=== PATIENT | male | born 1965 | race Caucasian/White ===

== ENCOUNTER → 2019-01-18 17:00 | Outpatient (CLI) | payer OTHER, SELFPAY | PROVIDERS: Family Provider Family Medicine; PCP Family Medicine; Referring Provider Physician Assistant; Visit Provider Physician Assistant | DX: L02.212 Cutaneous abscess of back [any part, except buttock and flank] (principal) | CPT/HCPCS: 87070; 87205 ==

== ENCOUNTER 2021-08-19 18:37 | Inpatient (IN) | payer OTHER, SELFPAY ==
[2021-08-19] VITALS (8 sets, daily range): BP systolic 143–174; BP diastolic 107–120; PULSE 105–121; RESP 16–29; TEMP 36.6–37.3; O2SAT 95–97; BMI 36.9; BMI 41.5
--- NOTE | 2021-08-19 18:47 | RAD_ITS ---
STUDY: X-RAY CHEST REASON FOR EXAM: Male, 55 years old. dyspnea TECHNIQUE: Single AP portable view of the chest. COMPARISON: None. FINDINGS: Mild opacities overlie the mid to lower lobes with prominent interstitial markings. There is no demonstrated pleural abnormality. There is moderate cardiac enlargement. Normal mediastinum and ana. Normal visualized pulmonary arteries. Normal visualized aortic arch and descending thoracic aorta. Normal visualized thoracic spine. Normal visualized ribs, clavicles, and shoulders. There is no demonstrated abnormality of the visualized soft tissue structures of the upper abdomen. RAD/Chest 1 View (Portable) IMPRESSION: Mild prominent mid to lower lung symmetric airspace disease and interstitial markings concerning for early alveolar edema and interstitial edema in the cardiogenic setting, clinically correlate. Electronically Signed: Cornelio Chiang DO at 22:01 EDT ,
--- NOTE | 2021-08-19 18:47 | EKG12_ITS ---
Test Reason : SOB Blood Pressure : / mmHG Vent. Rate : 117 BPM Atrial Rate : 117 BPM P-R Int : 158 ms QRS Dur : 084 ms QT Int : 330 ms P-R-T Axes : 051 071 057 degrees QTc Int : 460 ms Sinus tachycardia Otherwise normal ECG Confirmed by HECTOR VICTORIA, ELOISE ([id number]), graphic editor GAVIN ROY ([id number]) on 08/20/2021 11:24:35 AM Referred By: ALIREZA Confirmed By:ELOISE YOUNG MD
--- NOTE | 2021-08-19 18:48 | ED.VIS.DYS ---
HPI History of Present Illness Chief Complaint: Shortness of Breath Detail of Chief Complaint: Shortness of breath that started for 5 days ago Informant: patient Narrative Narrative: Patient presents to the emergency department with increasing shortness of breath over the last for 5 days. Patient also has noticed increased swelling as in his legs. He complains of exertional dyspnea. He denies any chest pain. Patient believes he may have had COVID a month ago because he had COVID-like symptoms but was never tested. He denies recent travel or surgery. He states that he normally does not go to the doctor. He states he does not otherwise have any medical history. He quit drinking alcohol 10 to 12 years ago but was a heavy drinker prior to that. PFSH PFSH Medical History no medical history Allergy/AdvReac Type Severity Reaction Status Date / Time No Known Allergies Allergy Verified 08/19/21 18:40 Surgical History no surgical history Social History Smoking Status: Current some day smoker tobacco type: cigarettes and smokeless tobacco ROS ROS ED Constitutional Constitutional ED: Reports systems reviewed and no addt'l complaints, except as documented; Denies body ache(s), change in weight or chills Eyes Eyes: Denies acute decrease in peripheral vision, change in vision, double vision or loss of vision ENT ENT ED: Reports none; Denies ear pain, lip swelling, loss taste/smell, neck pain, otalgia or sore throat Cardiovascular Cardiovascular: Reports none; Denies abdominal pain, chest pain with activity, leg edema, lightheadedness, palpitations, rapid heart rate or syncope Respiratory/Chest Respiratory/Chest: Reports none and dyspnea; Denies change in mental status, dry cough, hemoptysis, shortness of breath at rest or shortness of breath with exertion Gastrointestinal Gastrointestinal: Reports none; Denies abdominal pain, change in stool character, diarrhea, hematemesis, hematochezia, melena, rectal bleeding or vomiting Genitourinary Genitourinary ED: Reports none; Denies abdominal discomfort, anuria, dysuria, genital pain or polyuria Musculoskeletal Musculoskeletal: Reports none and other Details: Bilateral leg swelling ; Denies arthralgias, back pain, difficulty walking, extremity pain, muscle weakness or myalgias Integumentary Reports none; Denies abscess or rash Neurologic Neurologic: Reports none; Denies abnormal gait, confusion, focal weakness, frequent falls, headache(s), loss of vision, numbness, paresthesias, radicular pain, vertigo or weakness Psychiatric Psychiatric: Reports systems reviewed and no addt'l complaints, except as documented and none; Denies behavioral changes, confusion, difficulty concentrating, hallucinations, suicidal ideation, tactile hallucinations or visual hallucinations Endocrine Endocrinology: Denies none, cold intolerance, excessive sweating, fatigue or heat intolerance Hematologic/Lymphatic Hematologic/Lymphatic: Reports none; Denies anemia, easy bleeding or easy bruising Allergic/Immunologic Allergic/Immunologic ED: Denies as per HPI, none, lip swelling, mouth swelling, throat swelling, tongue swelling or hives EXAM Physical Exam Const Vital Signs: 08/19/21 18:38 08/19/21 19:03 08/19/21 19:44 Temperature 97.9 F Temperature Source Temporal Pulse Rate 121 H 112 H Respiratory Rate 16 27 H Respiratory Effort Normal Non-Labored Respiratory Depth Normal Respiratory Pattern Normal Blood Pressure 174/120 H 154/111 H Blood Pressure Mean 138 125 Pulse Ox 95 96 Oxygen Delivery Method Room Air Room Air Room Air 08/19/21 20:20 08/19/21 20:42 Temperature Temperature Source Pulse Rate 110 H 111 H Respiratory Rate 29 H Respiratory Effort Respiratory Depth Respiratory Pattern Blood Pressure 156/110 H 153/120 H Blood Pressure Mean 125 Pulse Ox 96 Oxygen Delivery Method Room Air Positive well nourished and well developed General Appearance ED: well developed and NAD HEENT Reports TM's clear and moist mucous membranes normocephalic and atraumatic; Negative for trauma or tenderness Tympanic Membrane ED: Yes TM's clear Eyes PERRL and EOMs intact bilaterally General Eye ED: Negative for pale conjunctiva or scleral icterus Neck no lymphadenopathy, supple and no JVD General: Negative for tenderness Chest Wall inspection of chest normal and palpation of chest normal Chest: Negative for tenderness Resp normal respiratory effort and clear to auscultation bilaterally Resp Narrative: Mild tachypnea on arrival. Patient has few rales in both bases with somewhat diminished breath sounds bilaterally in the bases. No accessory muscle use or retractions noted. There is no significant wheezing. Effort and Inspection: Negative for respiratory distress or pain with movement Auscultation: rales; Negative for rhonchi, wheezes or diminished lung sounds Cardio regular rate, regular rhythm, S1 normal heart sound, S2 normal heart sound and no murmurs Peripheral Pulses: pulses 2+ throughout GI normal to inspection, nondistended, normoactive bowel sounds, soft to palpation, non-tender, non-distended and no masses Back/Spine no CVA tenderness and no thoracic nor lumbar tenderness Extremity normal to inspection Extremity Narrative: Patient has +2 edema both lower extremities General Extremety ED: Yes edema General Extremity: edema Neuro oriented x3, CN's II-XII intact bilaterally, no sensory deficits noted and gait normal Sensorium / Orientation: awake, alert, oriented to person, oriented to place and oriented to time Motor Exam: strength 5/5 throughout and strength abnormal Psych mental status grossly normal Skin no rashes or lesions noted and no wounds MDM MDM MDM Narrative Medical decision making narrative: IV line established on arrival. Patient placed on a quality assurance monitor body. Lab work up significant for an elevated D-dimer of 0.65. Troponin was normal. Lactate was normal. BNP was elevated at 637. 1 view chest x-ray obtained interpreted by myself as cardiomegaly with pulmonary congestion and small bilateral effusions. Official report from radiology pending. A CTA of the chest was obtained to rule out PE and this was read as negative for PE. Exam was consistent with CHF with bilateral effusions and pulmonary edema as well as cardiomegaly. Patient received Lasix 40 mg IV and had an inch of Nitropaste placed to the anterior chest wall. Case discussed with hospitalist will evaluate patient for admission for diagnosis of new onset CHF as well as hypertension and exertional dyspnea. Lab Data Attestation: I reviewed the patient's lab results. Labs: Laboratory Results - last 24 hr 08/19/21 08/19/21 08/19/21 18:58 18:58 18:58 WBC 8.6 RBC 4.62 Hgb 11.7 L Hct 38.6 L MCV 83.5 MCH 25.3 L MCHC 30.3 L RDW Std Deviation 46.4 H RDW Coeff of Henny 15.4 H Plt Count 273 MPV 9.1 Immature Gran % (Auto) 0.300 Neut % (Auto) 70.9 H Lymph % (Auto) 13.8 L [place] % (Auto) 10.2 H Eos % (Auto) 3.9 Baso % (Auto) 0.9 Absolute Neuts (auto) 6.1 Absolute Lymphs (auto) 1.19 Nucleated RBC % 0 D-Dimer Quant (PE/DVT) 0.65 H* Sodium 141 Potassium 3.9 Chloride 108 H Carbon Dioxide 28.0 Anion Gap 5 BUN 16 Creatinine 0.88 Estim Creat Clear Calc 94.85 Est GFR (MDRD) Af Amer 116 Est GFR (MDRD) Non-Af 96 BUN/Creatinine Ratio 18.3 Glucose 102 Lactic Acid Calcium 8.5 Total Bilirubin 1.00 AST 27 ALT 65 H Alkaline Phosphatase 96 Troponin I High Sens 36 B-Natriuretic Peptide Total Protein 6.9 Albumin 3.2 Globulin 3.7 Albumin/Globulin Ratio 0.9 08/19/21 08/19/21 18:58 18:58 WBC RBC Hgb Hct MCV MCH MCHC RDW Std Deviation RDW Coeff of Henny Plt Count MPV Immature Gran % (Auto) Neut % (Auto) Lymph % (Auto) [place] % (Auto) Eos % (Auto) Baso % (Auto) Absolute Neuts (auto) Absolute Lymphs (auto) Nucleated RBC % D-Dimer Quant (PE/DVT) Sodium Potassium Chloride Carbon Dioxide Anion Gap BUN Creatinine Estim Creat Clear Calc Est GFR (MDRD) Af Amer Est GFR (MDRD) Non-Af BUN/Creatinine Ratio Glucose Lactic Acid 1.7 Calcium Total Bilirubin AST ALT Alkaline Phosphatase Troponin I High Sens B-Natriuretic Peptide 636.8 H Total Protein Albumin Globulin Albumin/Globulin Ratio Radiography Chest X-Ray - ED: 1 View Diagnostic Testing: Clinical Impression(s) from Imaging Studies Chest CTA 08/19/21 19:47 IMPRESSION: 1. No evidence of PE or aortic aneurysm or dissection. 2. Findings highly consistent with CHF including cardiomegaly, pulmonary interstitial edema, and mild pleural effusions. 3. Extensive old granulomatous disease, too numerous to count scattered punctate calcified lung granulomas and tiny calcifications in the hilar regions. 4. Coronary artery calcifications. 5. Some mild groundglass opacities lungs, most likely due to some slight superimposed alveolar edema, cannot exclude some mild pneumonitis. Electronically Signed: Maria E Link MD at 21:19 EDT , 1 view chest x-ray obtained interpreted by myself as cardiomegaly with pulmonary congestion and small bilateral effusions. Official report from radiology pending. EKG Initial EKG: Attestation: I personally reviewed and interpreted this EKG as follows: Comments: Sinus tachycardia with a ventricular rate of 117 bpm with no acute ST segment changes Discharge Plan Triage Chief Complaint: Shortness of Breath ED Provider: Scarlett Kennedy Dx/Rx/DC Orders Clinical Impression: New onset of congestive heart failure, Exertional dyspnea, Hypertension Primary Care Provider: Care Physician,No Primary Referrals: Care Physician,No Primary [Primary Care Provider] - Disposition Disposition: Acute Care Hospital [facility]
[2021-08-19 19:17] LABS: Absolute Lymphocyte Count 1.19 X10^3/uL (0.83-4.51); Absolute Neutrophil Count 6.1 X10^3/uL (2.0-7.7); Basophil# 0.08 X10^3/uL; Basophil% 0.9 % (0-1); Eosinophil# 0.34 X10^3/uL; Eosinophils% 3.9 % (0-5); Hematocrit 38.6 % (40-54); Hemoglobin 11.7 g/dL (13.0-16.5); Lymphocyte # 1.19 X10^3/ul (0.83-4.51); Lymphocyte % 13.8 % (19-41); Mean Corp Hgb Conc 30.3 g/dL (32-36); Mean Corpuscular Hgb 25.3 pg (27.0-32.0); Mean Corpuscular Volume 83.5 fL (80-94); Mean Platelet Vol. 9.1 fl (6.2-12.0); Monocyte# 0.88 X10^3/uL; Monocyte% 10.2 % (0-10); NRBC Flagged by Analyzer 0 % (0-5); Neutrophil # 6.12 X10^3/uL (2.7-7.7); Neutrophil % 70.9 % (47-70); Platelet Count 273 K/mm3 (150-450); RBC Distribution Width CV 15.4 % (11.6-14.6); RBC Distribution Width SD 46.4 fl (35.1-43.9); Red Blood Count 4.62 M/mm3 (4.6-6.2); White Blood Count 8.6 K/mm3 (4.4-11.0)
[2021-08-19 19:35] LABS: ALB/GLOB Ratio 0.9 RATIO (0.9-2.4); AST(SGOT) 27 U/L (15-37); Alanine Aminotransfer ALT/SGPT 65 U/L (16-61); Albumin, Serum 3.2 g/dL (3.2-5.0); Alkaline Phosphatase 96 U/L (45-117); Anion Gap 5 (5-15); BUN 16 mg/dL (7-18); BUN/Creat Ratio 18.3 RATIO (10-20); Calcium,Total 8.5 mg/dL (8.5-10.1); Chloride 108 mmol/L (98-107); Creatinine, Serum 0.88 mg/dL (0.70-1.30); EST Glomerular Filtration Rate 96 mL/min (>60); Est Glom Filt Rate - Afr Amer 116 mL/min (>60); Estimated Creatinine Clearance 94.85 ml/min; Globulin 3.7 g/dL (2.2-4.2); Glucose 102 mg/dL (74-106); Potassium 3.9 mmol/L (3.5-5.1); Protein, Total 6.9 g/dL (6.4-8.2); Sodium Level 141 mmol/L (136-145); Troponin-I HS 36 pg/mL (3.0-78.0)
[2021-08-19 19:37] LABS: BNP,B-Type NATRIURETIC PEPTIDE 636.8 pg/mL (0-100)
[2021-08-19 19:39] LABS: Lactic Acid 1.7 mmol/L (0.4-1.9)
[2021-08-19 19:47] LABS: D-Dimer Quantitative (DVT/PE) 0.65 FEU/ug/m (0.27-0.49)
--- NOTE | 2021-08-19 19:47 | CT_ITS ---
EXAM: CT ANGIOGRAPHY CHEST WITHOUT AND WITH INTRAVENOUS CONTRAST CLINICAL INDICATION: dyspnea, tachycardia, elevated d-dimer TECHNIQUE: Helically acquired angiography images were obtained of the chest without and with intravenous contrast. This CT exam was performed using one or more of the following dose reduction techniques: automated exposure control, adjustment of the mA and/or kV according to patient size, and/or use of iterative reconstruction technique. This report was created using So[employer] report generation technology. MIP reconstructed images were created and reviewed. CONTRAST: IV 100mL [id number]-370 RADIATION DOSE: CTDIvol = 34.04 mGy, DLP = 636.03 mGy-cm COMPARISON: None. FINDINGS: PULMONARY ARTERIES: Unremarkable. Normal in caliber. No evidence of pulmonary embolism. AORTA: Unremarkable. Normal in caliber. No evidence of dissection. GREAT VESSELS OF AORTIC ARCH: Unremarkable. Normal in caliber. No evidence of dissection. LUNGS AND PLEURAL SPACES: There are numerous scattered calcified granulomas in the lungs. Mild increased interstitial markings in the upper lobes and lung bases, typical of mild pulmonary interstitial edema. Mild airway thickening in the central lungs, presumably peribronchiolar edema. Mild patchy groundglass opacities in the dependent left lung and in the right upper lobe may be slight superimposed alveolar edema, less likely pneumonitis. Mild bilateral pleural effusions. No mass. HEART: Mild multichamber cardiomegaly, no intracardiac filling defect. Moderate coronary artery calcifications in left coronary artery and branches. No pericardial effusion. No signs of right heart strain, ratio of right ventricle to left ventricle measures less than 1. MEDIASTINUM: Mild fluid in the superior pericardial recesses. Mild mediastinal lipomatosis and small mediastinal lymph nodes of up to about 1 cm short axis. There are multiple tiny hilar calcifications, presumably due to old granulomatous disease. No central airway obstruction. Esophagus is unremarkable. No hiatal hernia. THYROID: Unremarkable. No thyroid lesions. BONES/JOINTS: Unremarkable. No suspicious lytic or blastic abnormality. GALLBLADDER AND BILE DUCTS: Contracted gallbladder is fully included. Unremarkable almost completely included pancreas, adrenals. CT/CTA Chest W/WO Contrast IMPRESSION: 1. No evidence of PE or aortic aneurysm or dissection. 2. Findings highly consistent with CHF including cardiomegaly, pulmonary interstitial edema, and mild pleural effusions. 3. Extensive old granulomatous disease, too numerous to count scattered punctate calcified lung granulomas and tiny calcifications in the hilar regions. 4. Coronary artery calcifications. 5. Some mild groundglass opacities lungs, most likely due to some slight superimposed alveolar edema, cannot exclude some mild pneumonitis. Electronically Signed: Maria E Link MD at 21:19 EDT ,
[2021-08-19] MEDS: Furosemide 40 MG/4 ML Vial IV (20:42)
[2021-08-19] MEDS: Nitroglycerin Oint 1 INCH PACKET TD (20:42)
--- NOTE | 2021-08-19 21:31 | PCM.HP.STD ---
[facility] - General General Date of Admission: 08/19/21 HPI Narrative MARY STARR, is a 55 M with a significant history of previous alcoholism now sober; tobacco abuse; and hypertension who does not follow-up with a doctor presenting with a 2-week history of progressively worsening shortness of breath. Initially his shortness of breath was with exertion but his shortness of breath progressed to even when he is at rest. Associated with symptom is paroxysmal nocturnal dyspnea; orthopnea; and fatigue. Further, he reports a weight gain of unspecified amount and in an unspecified timeframe. He reports swelling in his abdomen; swelling and in his feet; swelling in his upper extremities; swelling in his abdomen and swelling in his lower extremities. Further he reports intermittent productive cough of yellow sputum. Of note patient's reports COVID-like symptoms about a month ago that resolved. He reports chronic sleep apnea [facility] Medical History (Updated 08/19/21 @ 21:[address] Rj Flores MD) Hypertension Medical History no medical history Allergy/AdvReac Type Severity Reaction Status Date / Time No Known Allergies Allergy Verified 08/19/21 18:40 Family History (Updated 08/19/21 @ 21:[address] Rj Flores MD) Other Heart disease Surgical History (Updated 08/19/21 @ 22:[address] Rj Flores MD) History of incision and drainage Surgical History no surgical history Social History Smoking Status: Current some day smoker tobacco type: cigarettes and smokeless tobacco ROS ROS Narrative Constitutional: Denies fever, chills, fatigue. Reports weight gain. Eyes: Denies blurry vision, change in eye color, change in vision, discharge from eye(s), double vision, erythema, eye pain, loss of vision or other HEENT: Denies abnormal hearing, dysphagia, ear pain, epistaxis, headache(s), hearing loss, nasal congestion, nasal discharge, post nasal drip, sinus pressure, sore throat or other Cardiovascular: Denies chest pain or palpitations. Reports orthopnea and paroxysmal nocturnal dyspnea. Reports edema Respiratory/Chest: Reports intermittent productive cough with yellow sputum. Reports shortness of breath. Gastrointestinal: Denies abdominal pain, coffee ground emesis, constipation, diarrhea, dyspepsia, hematemesis, hematochezia, loose stools, melena, nausea, vomiting or other Genitourinary: Denies burning urination, difficulty urinating, dysuria, hematuria, nocturia, urinary frequency, urinary hesitancy, urinary incontinence, urinary urgency or other Musculoskeletal: Denies arthralgias, back pain, joint pain, joint stiffness, joint swelling, myalgias, neck pain or other Neurologic: Denies abnormal gait, abnormal speech, confusion, disequilibrium, dizziness, focal weakness, numbness, paresthesias, seizure-like activity, seizures, syncope, tingling, tremor(s) or other Psychiatric: Denies anxiety, depression, homicidal ideation, suicidal ideation or other Endocrinology: Denies change in body appearance, cold intolerance, excessive sweating, heat intolerance, polydipsia, polyuria or other Hematologic/Lymphatic: Denies anemia, easy bleeding, easy bruising, lymphadenopathy or other Integumentary: Denies rashes Allergic/Immunologic: Denies rhinitis, hives, eczema, or other Vital Signs Vital Signs Vital Signs: 08/19/21 18:38 08/19/21 19:03 08/19/21 19:44 Temperature 97.9 F Temperature Source Temporal Pulse Rate 121 H 112 H Respiratory Rate 16 27 H Respiratory Effort Normal Non-Labored Respiratory Depth Normal Respiratory Pattern Normal Blood Pressure 174/120 H 154/111 H Blood Pressure Mean 138 125 Pulse Ox 95 96 Oxygen Delivery Method Room Air Room Air Room Air 08/19/21 20:20 08/19/21 20:42 Temperature Temperature Source Pulse Rate 110 H 111 H Respiratory Rate 29 H Respiratory Effort Respiratory Depth Respiratory Pattern Blood Pressure 156/110 H 153/120 H Blood Pressure Mean 125 Pulse Ox 96 Oxygen Delivery Method Room Air Weight Weight: 113.398 kg Body Mass Index (BMI) 36.9 Physical Exam Narrative Physical exam: General: Well-nourished, well-developed. Head: Normocephalic, atraumatic, no tenderness Eyes: Vision is grossly intact. EOMI ENT, no trauma, moist mucous membranes, no rhinorrhea Neck: Nontender, full range of motion, no spinal tenderness, deformities, step-off CVS: Regular rate and rhythm. S1-S2 present. No murmur, gallop or rub. Respiratory : Conversational dyspnea. Bibasilar Rales., chest wall nontender, no wheezing Abdomen: Soft, nontender, nondistended, normal bowel sounds, no masses : Deferred Back: Nontender, no CVA tenderness, no midline spinal tenderness, deformities, step-offs Extremities: Nontender full range of motion, no trauma. Pitting edema bilateral legs. Skin: Normal color, no trauma, abrasions Neuro: Alert, oriented, cranial nerves II through XII grossly intact. Psychiatry: Normal mood. Normal affect. Not depressed. Not anxious. Results Lab / Micro Data Result Diagrams: 08/19/21 18:58 08/19/21 18:58 Labs: Laboratory Results - last 24 hr 08/19/21 18:58: WBC 8.6, RBC 4.62, Hgb 11.7 L, Hct 38.6 L, MCV 83.5, MCH 25.3 L, MCHC 30.3 L, RDW Std Deviation 46.4 H, RDW Coeff of Henny 15.4 H, Plt Count 273, MPV 9.1, Immature Gran % (Auto) 0.300, Neut % (Auto) 70.9 H, Lymph % (Auto) 13.8 L, [place] % (Auto) 10.2 H, Eos % (Auto) 3.9, Baso % (Auto) 0.9, Absolute Neuts (auto) 6.1, Absolute Lymphs (auto) 1.19, Nucleated RBC % 0 08/19/21 18:58: D-Dimer Quant (PE/DVT) 0.65 H* 08/19/21 18:58: Sodium 141, Potassium 3.9, Chloride 108 H, Carbon Dioxide 28.0, Anion Gap 5, BUN 16, Creatinine 0.88, Estim Creat Clear Calc 94.85, Est GFR (MDRD) Af Amer 116, Est GFR (MDRD) Non-Af 96, BUN/Creatinine Ratio 18.3, Glucose 102, Calcium 8.5, Total Bilirubin 1.00, AST 27, ALT 65 H, Alkaline Phosphatase 96, Troponin I High Sens 36, Total Protein 6.9, Albumin 3.2, Globulin 3.7, Albumin/Globulin Ratio 0.9 08/19/21 18:58: Lactic Acid 1.7 08/19/21 18:58: B-Natriuretic Peptide 636.8 H Micro: Microbiology 08/19/21 18:55 Nasal Secretion SARS-CoV-2 Antigen (Rapid) - Final Radiology Impression Chest CTA 08/19/21 19:47 IMPRESSION: 1. No evidence of PE or aortic aneurysm or dissection. 2. Findings highly consistent with CHF including cardiomegaly, pulmonary interstitial edema, and mild pleural effusions. 3. Extensive old granulomatous disease, too numerous to count scattered punctate calcified lung granulomas and tiny calcifications in the hilar regions. 4. Coronary artery calcifications. 5. Some mild groundglass opacities lungs, most likely due to some slight superimposed alveolar edema, cannot exclude some mild pneumonitis. Electronically Signed: Maria E Link MD at 21:19 EDT , Assessment & Plan Assessment/Plan (1) New onset of congestive heart failure: (2) Hypertension: QUALIFIERS: Hypertension type: unspecified Qualified Code(s): I10 - Essential (primary) hypertension PLAN: New onset congestive heart failure Unspecified whether preserved or reduced ejection fraction. Place on monitored bed on progressive care unit Weight on admission to the floor; and then daily Strict I&O's CXR independently visualized and interpreted showed enlarged cardiac silhouette with interstitial infiltrates. Chest CTA was visualized and independently interpreted and I agree with radiologist interpretation of CHF findings and bilateral pleural effusion. BNP of 636.8. Nitroglycerin paste given at the emergency department. Lasix 40 mg IV push given at the emergency department and continued. Transthoracic echocardiogram to evaluate left ventricular wall motion and systolic function. Monitor electrolytes and renal function Elevate bilateral lower extremities. Fluid restriction of 1500 mls daily Cardiac diet. Elevated liver enzymes ALT of 65. Likely secondary to passive congestion of liver. Trend CMP. Hypertension On presentation blood pressure was not within goal. Nitroglycerin paste given at the emergency department as above. Lisinopril ordered. Trend blood pressures and adjust blood pressure medications Anemia CBC showed hemoglobin of 11.7 Trend. DVT prophylaxis: Subcutaneous Lovenox ordered. Charges/Coding Visit Charges Inpatient E&M: 99933 Init Hosp L3
--- NOTE | 2021-08-19 22:12 | ECHOCS_ITS ---
Reason For Study: DYSPNEA Procedure This was a 2D Doppler, Color Flow transthoracic echocardiogram. The study was technically difficult. Contrast injection was performed. Exam performed portable in patient room. Left Ventricle Normal LV size. The estimated ejection fraction is 40 %. There is mild to moderate global hypokinesis of the left ventricle. Right Ventricle Normal RV size. Normal systolic function. Atria The left atrium is severely enlarged. The right atrium is mildly enlarged. Mitral Valve Mild focal mitral valve calcification. Mild (1+) eccentric mitral valve insufficiency. Tricuspid Valve Normal tricuspid valve. Moderate (2+) tricuspid valve insufficiency. Pulmonary artery systolic pressure is 60 mmHg. Aortic Valve Trisinus/trileaflet aortic valve. Pulmonic Valve Normal pulmonic valve. Great Vessels Normal aortic root. The pulmonary artery is normal size. Normal inferior vena cava. Pericardium/Pleural No pericardial effusion. Medication Diluted definity 2ml given slow IV push to enhance endocardial definition. MMode/2D Measurements & Calculations Ao root diam: 3.6 cm LAV(MOD-bp): 115.8 ml LVAd ap4: 56.3 cm2 LAV(MOD-bp) Indexed: 50.5 ml/m2 LVLd ap4: 10.7 cm LAV(MOD-sp2): 80.3 ml EDV(MOD-sp4): 240.4 ml LAV(MOD-sp4): 160.1 ml EDV(sp4-el): 250.8 ml LVAs ap4: 38.7 cm2 LVLs ap4: 8.9 cm ESV(MOD-sp4): 138.3 ml ESV(sp4-el): 143.1 ml EF(MOD-sp4): 42.4 % EF(sp4-el): 42.9 % SV(MOD-sp4): 102.0 ml SV(sp4-el): 107.7 ml LA A4 area: 37.1 cm2 LA dimension(2D): 5.7 cm RA A4 area: 23.5 cm2 Doppler Measurements & Calculations MV E max obi: 130.3 cm/sec Ao V2 max: 135.9 cm/sec LV V1 max: 98.1 cm/sec Ao max P.4 mmHg LV V1 max P.8 mmHg MR max obi: 616.9 cm/sec PA V2 max: 89.6 cm/sec TR max obi: 367.9 cm/sec MR max P.2 mmHg TR max P.1 mmHg MR mean obi: 435.8 cm/sec MR mean P.8 mmHg MR VTI: 154.3 cm ECHO/Echo Complete W/ Contrast Interpretation Summary Normal LV size. The estimated ejection fraction is 40 %. Normal tricuspid valve. Pulmonary artery systolic pressure is 60 mmHg. Contrast injection was performed. Ordering Physician: Rj Flores Performed By: Caprice Granger RCS
--- NOTE | 2021-08-19 22:57 | NURSING ---
pt daughter was in took pt wallet home w/ $370 stewart.
[2021-08-19] MEDS: Lisinopril 10 MG Tablet PO (23:15)
[2021-08-19] MEDS: 0.9% Saline Lock 10 ML Syringe IV (23:21)
[2021-08-20] VITALS (14 sets, daily range): BP systolic 129–151; BP diastolic 87–99; PULSE 99–113; RESP 14–16; TEMP 36.6–36.8; O2SAT 93–98
[2021-08-20] MEDS: Potassium Chloride Oral Tablet 10 MEQ PO (01:35)
[2021-08-20 05:20] LABS: Absolute Lymphocyte Count 1.15 X10^3/uL (0.83-4.51); Absolute Neutrophil Count 6.5 X10^3/uL (2.0-7.7); Basophil# 0.09 X10^3/uL; Eosinophil# 0.36 X10^3/uL; Hemoglobin 10.7 g/dL (13.0-16.5); Lymphocyte # 1.15 X10^3/ul (0.83-4.51); Lymphocyte % 12.7 % (19-41); Mean Corp Hgb Conc 30.6 g/dL (32-36); Mean Corpuscular Hgb 25.4 pg (27.0-32.0); Mean Corpuscular Volume 82.9 fL (80-94); Mean Platelet Vol. 8.8 fl (6.2-12.0); Monocyte# 0.95 X10^3/uL; Monocyte% 10.5 % (0-10); NRBC Flagged by Analyzer 0 % (0-5); Neutrophil # 6.46 X10^3/uL (2.7-7.7); Neutrophil % 71.5 % (47-70); Platelet Count 249 K/mm3 (150-450); RBC Distribution Width CV 15.4 % (11.6-14.6); RBC Distribution Width SD 46.8 fl (35.1-43.9); Red Blood Count 4.22 M/mm3 (4.6-6.2)
[2021-08-20 05:44] LABS: ALB/GLOB Ratio 0.9 RATIO (0.9-2.4); AST(SGOT) 24 U/L (15-37); Alanine Aminotransfer ALT/SGPT 51 U/L (16-61); Albumin, Serum 2.8 g/dL (3.2-5.0); Alkaline Phosphatase 79 U/L (45-117); Anion Gap 4 (5-15); BUN 13 mg/dL (7-18); BUN/Creat Ratio 16.8 RATIO (10-20); Calcium,Total 8.1 mg/dL (8.5-10.1); Chloride 107 mmol/L (98-107); Creatinine, Serum 0.77 mg/dL (0.70-1.30); EST Glomerular Filtration Rate 111 mL/min (>60); Est Glom Filt Rate - Afr Amer 134 mL/min (>60); Estimated Creatinine Clearance 111.92 ml/min; Glucose 97 mg/dL (74-106); Potassium 3.7 mmol/L (3.5-5.1); Protein, Total 5.8 g/dL (6.4-8.2); Sodium Level 142 mmol/L (136-145)
[2021-08-20 06:21] LABS: Magnesium 1.9 mg/dL (1.6-2.6)
[2021-08-20] MEDS: Potassium Chloride Oral Tablet 20 MEQ 40 MEQ PO (07:57)
--- NOTE | 2021-08-20 08:28 | PN.HOSP_ITS ---
Subjective Subjective Patient is a 55-year-old gentleman admitted with exertional dyspnea and bilateral lower extremity edema Objective Data Objective Data Vital Signs: Vital Signs Temp Pulse Resp BP Pulse Ox 98.0 F 104 H 16 129/95 H 94 08/20/21 04:05 08/20/21 06:59 08/20/21 04:05 08/20/21 04:05 08/20/21 07:47 Oxygen Delivery Method Room Air Weight: 129.274 kg Body Mass Index (BMI) 41.5 Intake & Output: Intake and Output for Last 24 Hours 08/18/21 08/19/21 08/20/21 23:59 23:59 23:59 Output Total 900 / 2600 2500 / 2500 Balance -900 / -2600 -2500 / -2500 Lab / Micro Data Result Diagrams: 08/20/21 04:58 08/20/21 04:58 Labs: Laboratory Results - last 24 hr 08/19/21 18:58: WBC 8.6, RBC 4.62, Hgb 11.7 L, Hct 38.6 L, MCV 83.5, MCH 25.3 L, MCHC 30.3 L, RDW Std Deviation 46.4 H, RDW Coeff of Henny 15.4 H, Plt Count 273, MPV 9.1, Immature Gran % (Auto) 0.300, Neut % (Auto) 70.9 H, Lymph % (Auto) 13.8 L, [place] % (Auto) 10.2 H, Eos % (Auto) 3.9, Baso % (Auto) 0.9, Absolute Neuts (auto) 6.1, Absolute Lymphs (auto) 1.19, Nucleated RBC % 0 08/19/21 18:58: D-Dimer Quant (PE/DVT) 0.65 H* 08/19/21 18:58: Sodium 141, Potassium 3.9, Chloride 108 H, Carbon Dioxide 28.0, Anion Gap 5, BUN 16, Creatinine 0.88, Estim Creat Clear Calc 94.85, Est GFR (M DRD) Af Amer 116, Est GFR (MDRD) Non-Af 96, BUN/Creatinine Ratio 18.3, Glucose 102, Calcium 8.5, Total Bilirubin 1.00, AST 27, ALT 65 H, Alkaline Phosphatase 96, Troponin I High Sens 36, Total Protein 6.9, Albumin 3.2, Globulin 3.7, Albumin/Globulin Ratio 0.9 08/19/21 18:58: Lactic Acid 1.7 08/19/21 18:58: B-Natriuretic Peptide 636.8 H 08/20/21 04:58: WBC 9.0, RBC 4.22 L, Hgb 10.7 L, Hct 35.0 L, MCV 82.9, MCH 25.4 L, MCHC 30.6 L, RDW Std Deviation 46.8 H, RDW Coeff of Henny 15.4 H, Plt Count 249, MPV 8.8, Immature Gran % (Auto) 0.300, Neut % (Auto) 71.5 H, Lymph % (Auto) 12.7 L, [place] % (Auto) 10.5 H, Eos % (Auto) 4.0, Baso % (Auto) 1.0, Absolute Anjel ts (auto) 6.5, Absolute Lymphs (auto) 1.15, Nucleated RBC % 0 08/20/21 04:58: Sodium 142, Potassium 3.7, Chloride 107, Carbon Dioxide 31.0, Anion Gap 4 L, BUN 13, Creatinine 0.77, Estim Creat Clear Calc 111.92, Est GFR (MDRD) Af Amer 134, Est GFR (MDRD) Non-Af 111, BUN/Creatinine Ratio 16.8, Glucose 97, Calcium 8.1 L, Total Bilirubin 1.10 H, AST 24, ALT 51, Alkaline Phosphatase 79, Total Protein 5.8 L, Albumin 2.8 L, Globulin 3.0, Albumin/Globulin Ratio 0.9 08/20/21 04:58: Magnesium 1.9 Micro: Microbiology 08/19/21 18:55 Nasal Secretion SARS-CoV-2 Antigen (Rapid) - Final Radiography Diagnostic Testing: Radiology Impression Chest X-Ray 08/19/21 18:47 IMPRESSION: Mild prominent mid to lower lung symmetric airspace disease and interstitial markings concerning for early alveolar edema and interstitial edema in the cardiogenic setting, clinically correlate. Electronically Signed: Cornelio Chiang DO at 22:01 EDT , Chest CTA 08/19/21 19:47 IMPRESSION: 1. No evidence of PE or aortic aneurysm or dissection. 2. Findings highly consistent with CHF including cardiomegaly, pulmonary interstitial edema, and mild pleural effusions. 3. Extensive old granulomatous disease, too numerous to count scattered punctate calcified lung granulomas and tiny calcifications in the hilar regions. 4. Coronary artery calcifications. 5. Some mild groundglass opacities lungs, most likely due to some slight superimposed alveolar edema, cannot exclude some mild pneumonitis. Electronically Signed: Maria E Link MD at 21:19 EDT , Physical Exam Narrative GENERAL: cooperative HEENT: Atraumatic; EYES; Anicteric, Normal Conjunctiva NECK; supple, normal thyroid, RESPIRATORY: Diminished to auscultation CARDIOVASCULAR: Regular S1 S2, GI: soft, normoactive bowel sounds, : No Renal angle tenderness; EXTREMITIES: Bipedal edema, no clubbing, MUSCULOSKELETAL: no muscle wasting NEURO: Awake; no lateralizing signs. SKIN: No Rash PSYCH; Flat affect Assessment & Plan Assessment/Plan (1) New onset of congestive heart failure: (2) Hypertension: QUALIFIERS: Hypertension type: unspecified Qualified Code(s): I10 - Essential (primary) hypertension PLAN: Patient is a 55-year-old gentleman admitted with exertional dyspnea and bilateral lower extremity edema 1. Acute congestive heart failure ? Unspecified at this point. Theology not clear. Patient denies previous history of coronary artery disease he however admitted to heavy use of alcohol in the past. Patient has been admitted to a monitored bed managed with strict input and output, fluid restriction as well as Lasix 2D echo ordered for subsequent evaluation 2. Hypertension - Blood pressure controlled, home medications continued with dose adjustment as needed 3. Elevated liver function tests ? Secondary to hepatic congestion from patient's CHF monitoring with daily CMP's 4. Anemia ? Ordered iron studies monitoring H&H with plans to transfuse patient becomes symptomatic or hemoglobin falls below 7 5. Class III obesity with BMI of 40.9 ? Weight loss advised 6. DVT prophylaxis ? SC Lovenox Charges/Coding Visit Charges Inpatient E&M: 95292 Subs Hosp L3
[2021-08-20] MEDS: 0.9% Saline Lock 10 ML Syringe IV ×2 (10:07→21:51)
[2021-08-20] MEDS: Lisinopril 10 MG Tablet PO (10:07)
[2021-08-20] MEDS: Furosemide 40 MG/4 ML Vial IV ×2 (10:07→17:57)
[2021-08-20] MEDS: Enoxaparin 40 MG/0.4 ML Syringe SC (10:07)
[2021-08-20 10:59] LABS: Platelet Count 254 K/mm3 (150-450); RET-HE 26.6 pg (30-35); Reticulocyte Count 2.47 % (0.5-1.5)
--- NOTE | 2021-08-20 11:00 | CASEMGMT ---
RN QUANG DATA MANAGER CM to room to meet with patient for initial transition planning/care coordination assessment. RN QUANG introduced self and role at [facility]. Pt voices understanding and consents to assessment at this time. Pt sitting up in chair in room in no distress at this time. Pt is A/O at this time and answers all questions appropriately. Care providers, pharmacy, and demographics verified/updated at this time. PCP: No PCP. Pt states would like a list of PCP's in [place] area. LUISITO DEL RIO provided list. Specialists: None Preferred Pharmacy: [facility] Retail Insurance: [employer] Prescription Benefit: yes LNOK: Daughter, Shani Galaviz. Living Arrangements: Lives alone in mobile home w/2 steps to enter. Independent. Works full-time Transportation: Pt states drives self and states no transportation concerns at this time. DME: Denies using any DME and denies needs. Pt does not have home O2 or a pulse ox. HHC/SNF: No hx of either. No needs identified. Pt wishes to return home and states has no concerns with going home at time of discharge. CM to follow for home oxygen needs and any further discharge planning/needs. Pt voices no further concerns/needs at this time. Advised pt to ask for CM if any further questions/concerns/needs arise. Voices understanding. PLAN: Home Nahum CAMPO RN, CM
[2021-08-20 11:06] LABS: Ferritin 21 ng/mL (26-388); Iron 28 ug/dL (65-175); Iron Binding Capacity,Total 396 ug/dL (250-450); PERCENT IRON SATURATION 7.1 % (15.0-55.0); Thyroid Stim Hormone (TSH) 1.65 uIU/mL (0.358-3.74)
[2021-08-20 12:20] LABS: Vitamin B12 367 pg/mL (211-911)
--- NOTE | 2021-08-20 15:00 | CHAPLAIN ---
Type of Pastoral Visit _x__ Initial Visit ___ Follow-up Visit ___ On-call Visit ___ General Patient Visit ___ Spiritual Assessment ___ Family Conference ___ Bereavement ___ Rapid Response ___ Code Blue ___ Other (describe below) Pastoral Care Referral From _x__ Patient ___ Family ___ Nurse ___ Physician ___ Field Sales Specialist ___ Home Energy Inspector ___ Other (describe below) Sacrament/Intervention _x__ Active listening ___ Anointing ___ Mormonism ___ Bereavement ___ Communion ___ Kylah exploration ___ ___ Life review _x__ Prayer ___ Reconciliation ___ Sacrament of Sick ___ Supportive presence ___ Wedding ___ Other (describe below) Pastoral Comments patient describes his recent health issues and acknowledges my dad had this too so I'm not really surprised and that changes will have to be made due to this; pt states that he is not anxious about changes and it's time for others to do what I've been doing at work and I'll make it through the adjustments; patient welcomes prayer support
--- NOTE | 2021-08-20 17:57 | PCM.CONS.C ---
Assessment & Plan Assessment/Plan (1) New onset of congestive heart failure: PLAN: He appears to have recent onset congestive heart failure which is systolic or reduced left ventricular ejection fraction. The etiology is not entirely clear but may be more than likely secondary to hypertensive heart disease which has been untreated. I would recommend that we start him on beta-quentin with carvedilol 6.25 mg twice a day Continue lisinopril for now and eventually consider switching to Entresto Continue intravenous diuresis Would need to evaluate him for obstructive coronary disease and with his risk factors I would suggest a left heart catheterization May be a candidate for spironolactone as well In addition we may consider an SGLT2 inhibitor (2) Hypertension: QUALIFIERS: Hypertension type: unspecified Qualified Code(s): I10 - Essential (primary) hypertension PLAN: His blood pressure is not under very good control at this time. He is on the ELOISA inhibitor and I would recommend the addition of the beta-quentin. Depending on the findings further recommendations will be made. Thank you for allowing me to participate in the care of your patient. Please don't hesitate to call if any issues arise. HPI Consult Data Date of Consult: 08/20/21 HPI Narrative HPI Narrative: MARY STARR, is a 55 M who presents to the emergency room because of shortness of breath which has been going on for over 2 weeks. He does have a history of hypertension and a remote history of tobacco and alcohol use. He says that over the last 2 weeks he has noticed that he was getting more fluid overloaded and was also coughing. He also had some exertional shortness of breath. He however denied any chest pain or paroxysmal nocturnal dyspnea or pedal edema. He however did have orthopnea as well. He presented to the emergency room and was evaluated and thought to be in congestive heart failure and admitted. He was diuresed and felt much better. An echocardiogram performed today demonstrated globally reduced left ventricular systolic function and thus cardiology was called for further evaluation and management. At this particular time he tells me that he is feeling quite well. [facility] Medical History Hypertension Medical History no medical history Allergy/AdvReac Type Severity Reaction Status Date / Time No Known Allergies Allergy Verified 08/19/21 18:40 Family History Other Heart disease Surgical History History of incision and drainage Surgical History no surgical history Social History Smoking Status: Current some day smoker tobacco type: smokeless tobacco ROS Constitutional Constitutional: Denies fever(s) or weight loss Eyes Eyes: Reports systems reviewed and no addt'l complaints, except as documented ENT HEENT: Reports systems reviewed and no addt'l complaints, except as documented Cardiovascular Cardiovascular: Reports dyspnea at rest, dyspnea on exertion and edema; Denies chest pain at rest, chest pain with activity, palpitations or paroxysmal nocturnal dyspnea Respiratory/Chest Respiratory/Chest: Denies dyspnea on exertion, productive cough, shortness of breath at rest or shortness of breath with exertion Gastrointestinal Gastrointestinal: Denies change in bowel habits, nausea, vomiting or weight changes Genitourinary Genitourinary: Denies difficulty urinating Musculoskeletal Musculoskeletal: Denies joint stiffness or muscle weakness Integumentary Integumentary: Denies lesions Neurologic Neurologic: Denies dizziness or syncope Psychiatric Psychiatric: Denies anxiety Endocrine Endocrinology: Denies excessive sweating or fatigue Hematologic/Lymphatic Hematologic/Lymphatic: Denies anemia Allergic/Immunologic Allergic/Immunologic: Denies seasonal rhinorrhea Physical Exam Const alert, oriented x3 and no apparent distress General Appearance: cooperative HEENT hearing grossly normal bilaterally Head and Scalp: atraumatic Eyes EOMs intact bilaterally Neck General: normal visual inspection Chest inspection of chest normal and palpation of chest normal Resp normal respiratory effort Auscultation: clear to auscultation bilaterally Cardio regular rate, regular rhythm, S1 normal heart sound and S2 normal heart sound Jugular Venous Distention: JVD GI normal to inspection, nondistended, normoactive bowel sounds Extremity normal capillary refill and no pedal edema Peripheral Pulses: Yes pulses 2+ throughout and femoral pulses present Skin no rashes or lesions noted Neuro oriented x3 and CN's II-XII intact bilaterally Psych Appearance: grossly normal and appropriate Risk Stratification Risk Stratification Applicable: No Objective Data Vital Signs: Vital Signs Temp Pulse Resp BP Pulse Ox 98.2 F 102 H 14 151/97 H 95 08/20/21 16:15 08/20/21 17:56 08/20/21 16:15 08/20/21 17:56 08/20/21 16:15 Oxygen Delivery Method Room Air Weight: 285 lb 0.923 oz Body Mass Index (BMI) 41.5 Intake & Output: Intake and Output for Last 24 Hours 08/18/21 08/19/21 08/20/21 23:59 23:59 23:59 Intake Total 240 / 240 Output Total 900 / 2600 4300 / 4300 Balance -900 / -2600 -4060 / -4060 Lab / Micro Data Result Diagrams: 08/20/21 04:58 08/20/21 04:58 Labs: Laboratory Results - last 24 hr 08/19/21 18:58: WBC 8.6, RBC 4.62, Hgb 11.7 L, Hct 38.6 L, MCV 83.5, MCH 25.3 L, MCHC 30.3 L, RDW Std Deviation 46.4 H, RDW Coeff of Henny 15.4 H, Plt Count 273, MPV 9.1, Immature Gran % (Auto) 0.300, Neut % (Auto) 70.9 H, Lymph % (Auto) 13.8 L, [place] % (Auto) 10.2 H, Eos % (Auto) 3.9, Baso % (Auto) 0.9, Absolute Neuts (auto) 6.1, Absolute Lymphs (auto) 1.19, Nucleated RBC % 0 08/19/21 18:58: D-Dimer Quant (PE/DVT) 0.65 H* 08/19/21 18:58: Sodium 141, Potassium 3.9, Chloride 108 H, Carbon Dioxide 28.0, Anion Gap 5, BUN 16, Creatinine 0.88, Estim Creat Clear Calc 94.85, Est GFR (MDRD) Af Amer 116, Est GFR (MDRD) Non-Af 96, BUN/Creatinine Ratio 18.3, Glucose 102, Calcium 8.5, Total Bilirubin 1.00, AST 27, ALT 65 H, Alkaline Phosphatase 96, Troponin I High Sens 36, Total Protein 6.9, Albumin 3.2, Globulin 3.7, Albumin/Globulin Ratio 0.9 08/19/21 18:58: Lactic Acid 1.7 08/19/21 18:58: B-Natriuretic Peptide 636.8 H 08/20/21 04:48: Retic Count 2.47 H, Immature Retic Fraction 25.80 H, Retic Hgb Equivalent 26.6 L 08/20/21 04:48: Iron 28 L, TIBC 396, Iron Saturation 7.1 L, Ferritin 21 L, TSH 1.65 08/20/21 04:58: WBC 9.0, RBC 4.22 L, Hgb 10.7 L, Hct 35.0 L, MCV 82.9, MCH 25.4 L, MCHC 30.6 L, RDW Std Deviation 46.8 H, RDW Coeff of Henny 15.4 H, Plt Count 249, MPV 8.8, Immature Gran % (Auto) 0.300, Neut % (Auto) 71.5 H, Lymph % (Auto) 12.7 L, [place] % (Auto) 10.5 H, Eos % (Auto) 4.0, Baso % (Auto) 1.0, Absolute Neuts (auto) 6.5, Absolute Lymphs (auto) 1.15, Nucleated RBC % 0 08/20/21 04:58: Sodium 142, Potassium 3.7, Chloride 107, Carbon Dioxide 31.0, Anion Gap 4 L, BUN 13, Creatinine 0.77, Estim Creat Clear Calc 111.92, Est GFR (MDRD) Af Amer 134, Est GFR (MDRD) Non-Af 111, BUN/Creatinine Ratio 16.8, Glucose 97, Calcium 8.1 L, Total Bilirubin 1.10 H, AST 24, ALT 51, Alkaline Phosphatase 79, Total Protein 5.8 L, Albumin 2.8 L, Globulin 3.0, Albumin/Globulin Ratio 0.9 08/20/21 04:58: Magnesium 1.9 08/20/21 11:27: Vitamin B12 367 Micro: Microbiology 08/19/21 18:55 Nasal Secretion SARS-CoV-2 Antigen (Rapid) - Final Cardiology Labs/Tests 08/19/21 18:58: WBC 8.6, RBC 4.62, Hgb 11.7 L, Hct 38.6 L, MCV 83.5, MCH 25.3 L, MCHC 30.3 L, Plt Count 273, MPV 9.1, Immature Gran % (Auto) 0.300, Neut % (Auto) 70.9 H, Lymph % (Auto) 13.8 L, [place] % (Auto) 10.2 H, Eos % (Auto) 3.9, Baso % (Auto) 0.9, Absolute Neuts (auto) 6.1, Nucleated RBC % 0 08/19/21 18:58: D-Dimer Quant (PE/DVT) 0.65 H* 08/19/21 18:58: Sodium 141, Potassium 3.9, Chloride 108 H, Carbon Dioxide 28.0, Anion Gap 5, BUN 16, Creatinine 0.88, Est GFR (MDRD) Af Amer 116, Est GFR (MDRD) Non-Af 96, BUN/Creatinine Ratio 18.3, Glucose 102, Calcium 8.5, Total Bilirubin 1.00 08/19/21 18:58: Lactic Acid 1.7 08/19/21 18:58: B-Natriuretic Peptide 636.8 H 08/20/21 04:48: Iron 28 L, TIBC 396, Iron Saturation 7.1 L, Ferritin 21 L 08/20/21 04:58: WBC 9.0, RBC 4.22 L, Hgb 10.7 L, Hct 35.0 L, MCV 82.9, MCH 25.4 L, MCHC 30.6 L, Plt Count 249, MPV 8.8, Immature Gran % (Auto) 0.300, Neut % (Auto) 71.5 H, Lymph % (Auto) 12.7 L, [place] % (Auto) 10.5 H, Eos % (Auto) 4.0, Baso % (Auto) 1.0, Absolute Neuts (auto) 6.5, Nucleated RBC % 0 08/20/21 04:58: Sodium 142, Potassium 3.7, Chloride 107, Carbon Dioxide 31.0, Anion Gap 4 L, BUN 13, Creatinine 0.77, Est GFR (MDRD) Af Amer 134, Est GFR (MDRD) Non-Af 111, BUN/Creatinine Ratio 16.8, Glucose 97, Calcium 8.1 L, Total Bilirubin 1.10 H 08/20/21 04:58: Magnesium 1.9 Rhythm: EKG: ECHO: Stress Test: Cardiac Cath: PCI: CT Surgery: Holter monitor: EPS: PPM: CXR: Chest CT Scan: Radiography Diagnostic Testing: Radiology Impression Chest X-Ray 08/19/21 18:47 IMPRESSION: Mild prominent mid to lower lung symmetric airspace disease and interstitial markings concerning for early alveolar edema and interstitial edema in the cardiogenic setting, clinically correlate. Electronically Signed: Cornelio Chiang at 22:01 EDT , Chest CTA 08/19/21 19:47 IMPRESSION: 1. No evidence of PE or aortic aneurysm or dissection. 2. Findings highly consistent with CHF including cardiomegaly, pulmonary interstitial edema, and mild pleural effusions. 3. Extensive old granulomatous disease, too numerous to count scattered punctate calcified lung granulomas and tiny calcifications in the hilar regions. 4. Coronary artery calcifications. 5. Some mild groundglass opacities lungs, most likely due to some slight superimposed alveolar edema, cannot exclude some mild pneumonitis. Electronically Signed: Maria E Link MD at 21:19 EDT , Echocardiogram 08/19/21 22:12 Interpretation Summary Normal LV size. The estimated ejection fraction is 40 %. Normal tricuspid valve. Pulmonary artery systolic pressure is 60 mmHg. Contrast injection was performed. Ordering Physician: Rj Flores Performed By: Caprice Granger RCS
[2021-08-20] MEDS: Carvedilol 6.25 MG Tablet PO (21:51)
[2021-08-21] VITALS (12 sets, daily range): BP systolic 125–147; BP diastolic 78–107; PULSE 93–103; RESP 16; TEMP 36.4–36.6; O2SAT 93–98; BMI 41.5
[2021-08-21] MEDS: Lisinopril 10 MG Tablet PO (06:11)
[2021-08-21] MEDS: Potassium Chloride Oral Tablet 20 MEQ 40 MEQ PO (06:11)
[2021-08-21] MEDS: Carvedilol 6.25 MG Tablet PO (06:11)
--- NOTE | 2021-08-21 06:31 | EKG12_ITS ---
Test Reason : AM EKG Blood Pressure : / mmHG Vent. Rate : 096 BPM Atrial Rate : 096 BPM P-R Int : 170 ms QRS Dur : 086 ms QT Int : 374 ms P-R-T Axes : 007 074 063 degrees QTc Int : 472 ms Normal sinus rhythm Normal ECG Confirmed by ALINA VICTORIA, ANANDA ([id number]), digital editor GAVIN ROY ([id number]) on 08/23/2021 10:15:12 AM Referred By: FELISA Confirmed By:ANANDA FULLER MD
[2021-08-21 06:44] LABS: Absolute Lymphocyte Count 1.18 X10^3/uL (0.83-4.51); Absolute Neutrophil Count 6.1 X10^3/uL (2.0-7.7); Basophil# 0.09 X10^3/uL; Eosinophil# 0.36 X10^3/uL; Eosinophils% 4.1 % (0-5); Hematocrit 40.1 % (40-54); Hemoglobin 12.3 g/dL (13.0-16.5); Lymphocyte # 1.18 X10^3/ul (0.83-4.51); Lymphocyte % 13.6 % (19-41); Mean Corp Hgb Conc 30.7 g/dL (32-36); Mean Corpuscular Hgb 25.4 pg (27.0-32.0); Mean Corpuscular Volume 82.7 fL (80-94); Mean Platelet Vol. 8.7 fl (6.2-12.0); Monocyte# 0.96 X10^3/uL; Monocyte% 11.1 % (0-10); NRBC Flagged by Analyzer 0 % (0-5); Neutrophil # 6.06 X10^3/uL (2.7-7.7); Neutrophil % 69.9 % (47-70); Platelet Count 271 K/mm3 (150-450); RBC Distribution Width CV 15.4 % (11.6-14.6); RBC Distribution Width SD 46.3 fl (35.1-43.9); Red Blood Count 4.85 M/mm3 (4.6-6.2); White Blood Count 8.7 K/mm3 (4.4-11.0)
[2021-08-21] MEDS: 0.9% Normal Saline 1,000 ML 15 ML IV (06:50)
[2021-08-21 07:10] LABS: Anion Gap 4 (5-15); BUN 13 mg/dL (7-18); BUN/Creat Ratio 16.5 RATIO (10-20); Calcium,Total 8.6 mg/dL (8.5-10.1); Chloride 104 mmol/L (98-107); Creatinine, Serum 0.79 mg/dL (0.70-1.30); EST Glomerular Filtration Rate 108 mL/min (>60); Est Glom Filt Rate - Afr Amer 131 mL/min (>60); Estimated Creatinine Clearance 109.09 ml/min; Glucose 98 mg/dL (74-106); Potassium 4.1 mmol/L (3.5-5.1); Sodium Level 141 mmol/L (136-145)
--- NOTE | 2021-08-21 07:15 | PN.HOSP_ITS ---
Subjective Subjective Patient echo obtained demonstrated EF of 40% with pulmonary arterial systolic pressure of 60 mmHg. Consult subsequently placed to cardiology in view of patient cardiomyopathy. Case discussed with Dr. Garcia plan is for patient to undergo left heart catheterization Objective Data Objective Data Vital Signs: Vital Signs Temp Pulse Resp BP Pulse Ox 97.9 F 100 16 147/78 H 94 08/21/21 06:09 08/21/21 06:09 08/21/21 06:09 08/21/21 06:09 08/21/21 06:09 Oxygen Delivery Method Room Air Weight: 121.6 kg Body Mass Index (BMI) 41.5 Intake & Output: Intake and Output for Last 24 Hours 08/19/21 08/20/21 08/21/21 23:59 23:59 23:59 Intake Total 1280 / 1280 Output Total 900 / 2600 8800 / 8800 700 / 700 Balance -900 / -2600 -7520 / -7520 -700 / -700 Lab / Micro Data Result Diagrams: 08/21/21 06:10 08/21/21 06:10 Labs: Laboratory Results - last 24 hr 08/20/21 04:48: Retic Count 2.47 H, Immature Retic Fraction 25.80 H, Retic Hgb Equivalent 26.6 L 08/20/21 04:48: Iron 28 L, TIBC 396, Iron Saturation 7.1 L, Ferritin 21 L, TSH 1.65 08/20/21 11:27: Vitamin B12 367 08/20/21 20:08: COVID-19 ([facility]) Not Detected 08/21/21 06:10: WBC 8.7, RBC 4.85, Hgb 12.3 L, Hct 40.1, MCV 82.7, MCH 25.4 L, MCHC 30.7 L, RDW Std Deviation 46.3 H, RDW Coeff of Henny 15.4 H, Plt Count 271, MPV 8.7, Immature Gran % (Auto) 0.300, Neut % (Auto) 69.9, Lymph % (Auto) 13.6 L , [place] % (Auto) 11.1 H, Eos % (Auto) 4.1, Baso % (Auto) 1.0, Absolute Neuts (auto) 6.1, Absolute Lymphs (auto) 1.18, Nucleated RBC % 0 08/21/21 06:10: Sodium 141, Potassium 4.1, Chloride 104, Carbon Dioxide 33.0 H, Anion Gap 4 L, BUN 13, Creatinine 0.79, Estim Creat Clear Calc 109.09, Est GFR (MDRD) Af Amer 131, Est GFR (MDRD) Non-Af 108, BUN/Creatinine Ratio 16.5, Glucose 98, Calcium 8.6 Micro: Microbiology 08/19/21 18:55 Nasal Secretion SARS-CoV-2 Antigen (Rapid) - Final Radiography Diagnostic Testing: Radiology Impression Echocardiogram 08/19/21 22:12 Interpretation Summary Normal LV size. The estimated ejection fraction is 40 %. Normal tricuspid valve. Pulmonary artery systolic pressure is 60 mmHg. Contrast injection was performed. Ordering Physician: Rj Flores Performed By: Caprice Granger RCS Physical Exam Narrative GENERAL: cooperative HEENT: Atraumatic; EYES; Anicteric, Normal Conjunctiva NECK; supple, normal thyroid, RESPIRATORY: Diminished to auscultation CARDIOVASCULAR: Regular S1 S2, GI: soft, normoactive bowel sounds, : No Renal angle tenderness; EXTREMITIES: Bipedal edema, no clubbing, MUSCULOSKELETAL: no muscle wasting NEURO: Awake; no lateralizing signs. SKIN: No Rash PSYCH; Flat affect Assessment & Plan Assessment/Plan (1) New onset of congestive heart failure: (2) Hypertension: QUALIFIERS: Hypertension type: unspecified Qualified Code(s): I10 - Essential (primary) hypertension PLAN: Patient is a 55-year-old gentleman admitted with exertional dyspnea and bilateral lower extremity edema 1. Acute congestive heart failure ? Unspecified at this point. Theology not clear. Patient denies previous history of coronary artery disease he however admitted to heavy use of alcohol in the past. Patient has been admitted to a monitored bed managed with strict input and output, fluid restriction as well as Lasix 2D echo ordered for subsequent evaluation -08/21/2021 Patient echo obtained demonstrated EF of 40% with pulmonary arterial systolic pressure of 60 mmHg. Consult subsequently placed to cardiology in view of patient cardiomyopathy. Case discussed with Dr. Garcia plan is for patient to undergo left heart catheterization 2. Hypertension - Blood pressure controlled, home medications continued with dose adjustment as needed 3. Elevated liver function tests ? Secondary to hepatic congestion from patient's CHF monitoring with daily CMP's 4. Anemia ? Ordered iron studies monitoring H&H with plans to transfuse patient becomes symptomatic or hemoglobin falls below 7 5. Class III obesity with BMI of 40.9 ? Weight loss advised 6. DVT prophylaxis ? SC Lovenox Charges/Coding Visit Charges Inpatient E&M: 79223 Subs Hosp L2
--- NOTE | 2021-08-21 08:07 | NURSING ---
Called report to Romeo JORGE in [facility]
--- NOTE | 2021-08-21 09:01 | PN.CARD_ITS ---
Subjective Subjective The patient was seen and evaluated this morning. Doing well. Objective Data Vital Signs: Vital Signs Temp Pulse Resp BP Pulse Ox 97.5 F L 93 16 127/97 H 94 08/21/21 08:06 08/21/21 08:06 08/21/21 08:06 08/21/21 08:06 08/21/21 08:06 Oxygen Delivery Method Room Air Weight: 268 lb 1.314 oz Body Mass Index (BMI) 41.5 Intake & Output: Intake and Output for Last 24 Hours 08/19/21 08/20/21 08/21/21 23:59 23:59 23:59 Intake Total 1280 / 1280 Output Total 900 / 2600 8800 / 8800 700 / 700 Balance -900 / -2600 -7520 / -7520 -700 / -700 Lab / Micro Data Result Diagrams: 08/21/21 06:10 08/21/21 06:10 Labs: Laboratory Results - last 24 hr 08/20/21 04:48: Retic Count 2.47 H, Immature Retic Fraction 25.80 H, Retic Hgb Equivalent 26.6 L 08/20/21 04:48: Iron 28 L, TIBC 396, Iron Saturation 7.1 L, Ferritin 21 L, TSH 1.65 08/20/21 11:27: Vitamin B12 367 08/20/21 20:08: COVID-19 ([facility]) Not Detected 08/21/21 06:10: WBC 8.7, RBC 4.85, Hgb 12.3 L, Hct 40.1, MCV 82.7, MCH 25.4 L, MCHC 30.7 L, RDW Std Deviation 46.3 H, RDW Coeff of Henny 15.4 H, Plt Count 271, MPV 8.7, Immature Gran % (Auto) 0.300, Neut % (Auto) 69.9, Lymph % (Auto) 13.6 L , [place] % (Auto) 11.1 H, Eos % (Auto) 4.1, Baso % (Auto) 1.0, Absolute Neuts (auto) 6.1, Absolute Lymphs (auto) 1.18, Nucleated RBC % 0 08/21/21 06:10: Sodium 141, Potassium 4.1, Chloride 104, Carbon Dioxide 33.0 H, Anion Gap 4 L, BUN 13, Creatinine 0.79, Estim Creat Clear Calc 109.09, Est GFR (MDRD) Af Amer 131, Est GFR (MDRD) Non-Af 108, BUN/Creatinine Ratio 16.5, Glucose 98, Calcium 8.6 Cardiology Labs/Tests 08/20/21 04:48: Iron 28 L, TIBC 396, Iron Saturation 7.1 L, Ferritin 21 L 08/21/21 06:10: WBC 8.7, RBC 4.85, Hgb 12.3 L, Hct 40.1, MCV 82.7, MCH 25.4 L, MCHC 30.7 L, Plt Count 271, MPV 8.7, Immature Gran % (Auto) 0.300, Neut % (Auto) 69.9, Lymph % (Auto) 13.6 L, [place] % (Auto) 11.1 H, Eos % (Auto) 4.1, Baso % (Auto) 1.0, Absolute Neuts (auto) 6.1, Nucleated RBC % 0 08/21/21 06:10: Sodium 141, Potassium 4.1, Chloride 104, Carbon Dioxide 33.0 H, Anion Gap 4 L, BUN 13, Creatinine 0.79, Est GFR (MDRD) Af Amer 131, Est GFR (MDRD) Non-Af 108, BUN/Creatinine Ratio 16.5, Glucose 98, Calcium 8.6 Rhythm: EKG: ECHO: Stress Test: Cardiac Cath: PCI: CT Surgery: Holter monitor: EPS: PPM: CXR: Chest CT Scan: Radiography Diagnostic Testing: Radiology Impression Echocardiogram 08/19/21 22:12 Interpretation Summary Normal LV size. The estimated ejection fraction is 40 %. Normal tricuspid valve. Pulmonary artery systolic pressure is 60 mmHg. Contrast injection was performed. Ordering Physician: Rj Flores Performed By: Caprice Granger RCS Physical Exam Const alert, oriented x3 and no apparent distress General Appearance: cooperative HEENT hearing grossly normal bilaterally Head and Scalp: atraumatic Eyes EOMs intact bilaterally Neck General: normal visual inspection Chest inspection of chest normal and palpation of chest normal Resp normal respiratory effort Auscultation: clear to auscultation bilaterally Cardio regular rate, regular rhythm, S1 normal heart sound and S2 normal heart sound Jugular Venous Distention: JVD GI normal to inspection, nondistended, normoactive bowel sounds Extremity normal capillary refill and no pedal edema Peripheral Pulses: Yes pulses 2+ throughout and femoral pulses present Skin no rashes or lesions noted Neuro oriented x3 and CN's II-XII intact bilaterally Psych Appearance: grossly normal and appropriate Assessment & Plan Assessment/Plan (1) New onset of congestive heart failure: PLAN: He appears to have recent onset congestive heart failure which is systolic or reduced left ventricular ejection fraction. The etiology is not entirely clear but may be more than likely secondary to hypertensive heart disease which has been untreated. I would recommend that we start him on beta-quentin with carvedilol 6.25 mg twice a day Continue lisinopril for now and eventually consider switching to Entresto Continue oral diuresis Cardiac catheterization today demonstrated nonobstructive coronary disease with a nondominant right coronary artery. The above likely suggest that the etiology of the above is hypertensive heart disease. May be a candidate for spironolactone as well In addition we may consider an SGLT2 inhibitor (2) Hypertension: QUALIFIERS: Hypertension type: unspecified Qualified Code(s): I10 - Essential (primary) hypertension PLAN: His blood pressure is not under very good control at this time. He is on the ELOISA inhibitor and I would recommend the addition of the beta-quentin. Depending on the findings further recommendations will be made. Thank you for allowing me to participate in the care of your patient. Please don't hesitate to call if any issues arise.
--- NOTE | 2021-08-21 09:10 | CL.D_ITS ---
Patient Name: MARY STARR Study Date: 08/21/2021 Performing: Richardson Garcia MD Ht: 70.07 inches 178 cm : 1965 Wt: 268.96 lbs 122 kg Age: 55 Gender: male BSA: 2.37 PROCEDURE(S) PERFORMED DC02-([id number])LHC/COR CLINICAL PROFILE AND INDICATIONS Indications: Cardiomyopathy Heart Failure: NYHA Class: 2, Newly Diagnosed: Yes, Heart Failure Type: Systolic Stress/Imaging Stress/Image Study Performed: No CAD Presentations: Other: chf CONCLUSIONS Non obstructive coronary arteries Cardiomyopathy: Congestive RECOMMENDATIONS Medical therapy DESCRIPTION OF PROCEDURE The patient arrived to the procedure lab. The risks and benefits of the procedure as well as a full d escription of our services here and current unavailability of surgical backup were fully explained to the patient and/or their significant other prior to the catheterization. The Timeout was completed, verifying the correct patient and procedure. The patient's procedural site was prepped and draped in the usual fashion. Local anesthetic was given subcutaneously to right radial region with Lidocaine 2% . Using a modified Seldinger technique, arterial access was obtained via the right radial artery, a 6 Fr sheath was inserted. Left Coronary Artery selective angiography was performed in multiple views u sing a 5 Fr. 4.0 Talco catheter. Right Coronary Artery selective angiography was then performed in mu ltiple views using a 5 Fr. 4.0 Talco catheter. LV to AO pullback pressures were then recorded.The art erial sheath was pulled and a TR Band was applied for hemostasis w/ 13 ml air CORONARY ANGIOGRAPHY DOMINANCE: Left Dominant LEFT HEART ASSESSMENT Left Ventricular Ejection Fraction: by Echo 40 % Global Hypokinesis - Mild Depressed Left Ventricular systolic function LEFT MAIN: Ostial 30 LEFT ANTERIOR DESCENDING ARTERY: Mild luminal irregularities CIRCUMFLEX ARTERY: Mild luminal irregularities RIGHT CORONARY ARTERY: No significant disease noted COMPLICATIONS No Complications PROCEDURE MEDICATIONS Versed 1 mg IV Fentanyl 50 mcg IV Versed 1 mg IV Oxygen: 2 L/min via nasal cannula Aspirin (325mg) 1 Tabs PO @ 08/21/2021 08:25:38 Heparin given IA 08/21/2021 08:48:53 Verapamil 2.5mg, Ntg 100mcgs, 3000 units of Heparin given IA 08/21/2021 08:48:53 SUMMARY OF HEMODYNAMIC DATA Time AIR REST ECG 08:25:17 Art 132/56 (83) 08:40:35 AO 107/76 (90) SA 08:50:37 LV 98/2, 11 08:55:55 LV 102/-1, 9 08:56:01 LVp 97/0, 11 08:56:06 AOp 101/75 (86) 08:56:11 RM AIR REST 09:08:30 Signed By Richardson Garcia MD On 08/21/2021 09:10:20 Richardson Garcia MD
--- NOTE | 2021-08-21 09:24 | CASEMGMT ---
According to the [facility] website, the following are in-network tertiary facilities: [facility], [facility], [facility], [facility], and . [place] JORGE CM
[2021-08-21] MEDS: Empagliflozin 10 MG Tablet PO (09:28)
[2021-08-21] MEDS: Furosemide 40 MG Tablet PO (09:28)
[2021-08-21] MEDS: Spironolactone 25 MG Tablet PO (09:29)
--- NOTE | 2021-08-21 11:01 | DS.PCM_ITS ---
Providers Date of Admission: 08/19/21 Primary Care Physician: Lyn Primary Care Phys Consultations 08/20/21 17:06 Consult: Cardiology Routine Consulting Provider: Richardson Garcia Reason for Consult: cardiomyopatrhy EMERGENT Consult: No MD Notified: Yes Date Notified: 08/20/21 Time Notified: 17:09 Method of Notification: Verbal Method of Consult:: In-Person Reason For Visit: NEW ONSET CHF Diagnosis Discharge Diagnosis (1) New onset of congestive heart failure: Status: Acute Code(s): I50.9 - Heart failure, unspecified (2) Hypertension: Status: Chronic Code(s): I10 - Essential (primary) hypertension Qualifiers: Hypertension type: unspecified Qualified Code(s): I10 - Essential (primary) hypertension Medications at Discharge Home Medications carvedilol 6.25 mg PO BID #180 tab 08/21/21 empagliflozin [Jardiance] 10 mg PO DAILY #90 tab 08/21/21 furosemide 40 mg PO DAILY #90 tab 08/21/21 lisinopril 10 mg PO DAILY #90 tab 08/21/21 spironolactone 25 mg PO DAILY #90 tab 08/21/21 Hospital Course Procedures 2-D Echocardiogram and Cardiac catheterization Summary of Care Provided Minutes Spent on Discharge: 35 Hospital Course: 1. Acute congestive heart failure reduced ejection fraction - Patient denies previous history of coronary artery disease he however admitted to heavy use of alcohol in the past. Patient has been admitted to a monitored bed managed with strict input and output, fluid restriction as well as Lasix 2D echo ordered for subsequent evaluation -08/21/2021 Patient echo obtained demonstrated EF of 40% with pulmonary arterial systolic pressure of 60 mmHg. Consult subsequently placed to cardiology in view of patient cardiomyopathy. Case discussed with Dr. Garcia plan is for patient to undergo left heart catheterization -Cardiac catheterization today demonstrated nonobstructive coronary disease with a nondominant right coronary artery. Patient was discharged home on recommended medications including furosemide, spironolactone, ELOISA inhibitor's, beta-blockers, and Jardiance 2. Hypertension - Blood pressure controlled, home medications continued with dose adjustment as needed 3. Elevated liver function tests ? Secondary to hepatic congestion from patient's CHF monitoring with daily CMP's 4. Anemia ? Ordered iron studies monitoring H&H with plans to transfuse patient becomes symptomatic or hemoglobin falls below 7 5. Class III obesity with BMI of 40.9 ? Weight loss advised 6. DVT prophylaxis ? SC Lovenox Physical Exam Narrative GENERAL: cooperative HEENT: Atraumatic; EYES; Anicteric, Normal Conjunctiva NECK; supple, normal thyroid, RESPIRATORY: Diminished to auscultation CARDIOVASCULAR: Regular S1 S2, GI: soft, normoactive bowel sounds, : No Renal angle tenderness; EXTREMITIES: Bipedal edema, no clubbing, MUSCULOSKELETAL: no muscle wasting NEURO: Awake; no lateralizing signs. SKIN: No Rash PSYCH; Flat affect Weight / BMI Weight Weight: 121.6 kg Body Mass Index (BMI) 41.5 ABG / Lab / Microbiology Data Result Diagrams: 08/21/21 06:10 08/21/21 06:10 Laboratory: Laboratory Results - last 24 hr 08/20/21 04:48: Iron 28 L, TIBC 396, Iron Saturation 7.1 L, Ferritin 21 L, TSH 1.65 08/20/21 11:27: Vitamin B12 367 08/20/21 20:08: COVID-19 ([facility]) Not Detected 08/21/21 06:10: WBC 8.7, RBC 4.85, Hgb 12.3 L, Hct 40.1, MCV 82.7, MCH 25.4 L, MCHC 30.7 L, RDW Std Deviation 46.3 H, RDW Coeff of Henny 15.4 H, Plt Count 271, MPV 8.7, Immature Gran % (Auto) 0.300, Neut % (Auto) 69.9, Lymph % (Auto) 13.6 L , [place] % (Auto) 11.1 H, Eos % (Auto) 4.1, Baso % (Auto) 1.0, Absolute Neuts (auto) 6.1, Absolute Lymphs (auto) 1.18, Nucleated RBC % 0 08/21/21 06:10: Sodium 141, Potassium 4.1, Chloride 104, Carbon Dioxide 33.0 H, Anion Gap 4 L, BUN 13, Creatinine 0.79, Estim Creat Clear Calc 109.09, Est GFR (MDRD) Af Amer 131, Est GFR (MDRD) Non-Af 108, BUN/Creatinine Ratio 16.5, Glucose 98, Calcium 8.6 Microbiology: Microbiology 08/19/21 18:55 Nasal Secretion SARS-CoV-2 Antigen (Rapid) - Final Radiography Diagnostic Testing: Radiology Impression Echocardiogram 08/19/21 22:12 Interpretation Summary Normal LV size. The estimated ejection fraction is 40 %. Normal tricuspid valve. Pulmonary artery systolic pressure is 60 mmHg. Contrast injection was performed. ___ Ordering Physician: Rj Flores Performed By: Caprice Granger RCS D/C Instructions Discharge Diet: 8 Cup Fluid Restriction and 2000 mg Sodium Diet Discharge Activity: Return to Normal Activity Call your doctor if you observe: Fever of 101 or Higher, Shortness of breath, Fainting spells and Chest pain Meaningful Use Info Meaningful Use Diagnoses (Choose all that apply): CHF CHF ELOISA/ARB ordered at discharge?: Yes Documented LVEF (%): 40 Discharge Plan Admission Admit Date/Time: 08/19/21 21:23 Attending Provider: Conrad Valdez Primary Care Provider: Care Physician,No Primary Consulting Providers: Rj Flores ; Richardson Garcia Discharge Orders/Prescriptions Prescriptions: New carvedilol 6.25 mg Tablet 6.25 mg PO BID Qty: 180 RF: 0 Jardiance 10 mg Tablet 10 mg PO DAILY Qty: 90 RF: 0 furosemide 40 mg Tablet 40 mg PO DAILY Qty: 90 RF: 0 spironolactone 25 mg Tablet 25 mg PO DAILY Qty: 90 RF: 0 lisinopril 10 mg Tablet 10 mg PO DAILY Qty: 90 RF: 0 Referrals / Follow Up: Richardson Garcia MD [STAFF PHYSICIAN] - Within 1 Month Care Physician,No Primary [Primary Care Provider] - Disposition Disposition (needs filled in before D/C Order can be placed): Home, Self Care Charges/Coding Visit Charges Inpatient E&M: 67864 Disch Hosp
--- NOTE | 2021-08-21 13:30 | CASEMGMT ---
Per [facility] pharmacy, unable to confirm that pt has Rx coverage. THis RN QUANG placed call to [facility] as pt does not know where his card is and RN QUANG obtained pt's Rx info. BIN: [id number], PCN: [id number], Grp: [id number]. Call back to Scott in pharmacy and he states they were able to figure it out and Jardiance is covered. Scott states will call room to notify pt of co-pays. Pt voices no further questions/concerns/needs. S[place]en LUISITO DEL RIO
== END 2021-08-21 13:45 | disposition home or self-care (01) | DRG 286 ==
LOC: ED 21:29 → PCU 21:35
PROVIDERS: Admitting Provider Hospitalist; Emergency Provider Emergency Medicine; Visit Provider Internal Medicine
DX: I11.0 Hypertensive heart disease with heart failure (principal); I50.21 Acute systolic (congestive) heart failure; Z68.41 Body mass index [BMI] 40.0-44.9, adult; I16.1 Hypertensive emergency; D64.9 Anemia, unspecified; K76.1 Chronic passive congestion of liver; E66.01 Morbid (severe) obesity due to excess calories; F17.210 Nicotine dependence, cigarettes, uncomplicated
CPT/HCPCS: 36415; 71045; 71275; 80048; 80053; 82607; 82728; 83540; 83550; 83605; 83735; 83880; 84443; 84484; 85025; 85045; 85379; 87040; 87635; 87811; 93005; 93306; 93454; 97802; 99152; 99153; 99284; 99406; J7030; Q9957; Q9967; A4216; C1769; C1894; C8929; J1940; U0003; U0005

== ENCOUNTER 2022-03-13 08:00 | Emergency (ER) | payer OTHER, SELFPAY ==
[2022-03-13 08:01] VITALS: BP 157/127; PULSE 109; RESP 26; TEMP 35.7; O2SAT 100; BMI 36.2
--- NOTE | 2022-03-13 08:18 | EKG12_ITS ---
Test Reason : SHORT OF BREATH Blood Pressure : / mmHG Vent. Rate : 106 BPM Atrial Rate : 106 BPM P-R Int : 158 ms QRS Dur : 084 ms QT Int : 362 ms P-R-T Axes : 053 074 073 degrees QTc Int : 480 ms Sinus tachycardia Possible Left atrial enlargement Borderline ECG Confirmed by DAYTON VICTORIA, MARIEL ([id number]), editor map GAVIN ROY ([id number]) on 03/15/2022 6:25:09 AM Referred By: WILBERT Confirmed By:GIA BURRIS MD
--- NOTE | 2022-03-13 08:19 | EDS_ITS ---
HPI History of Present Illness Chief Complaint: Shortness of Breath Informant: patient Narrative Narrative: Patient presents with dyspnea on exertion, orthopnea, and edema in his legs and now up to his upper abdomen that has been going on for the past 3 or 4 weeks, this all since he has been out of his medications for the past 3 months due to lack of insurance and lack of seeing any physicians. He states now he has insurance, so he presents here to the ER to try to get help. Denies any exertional chest discomfort or syncope. He has a history of congestive heart failure. He denies any cough or fevers. No pain in his legs except for the tightness from all of the swelling. [facility] Medical History (Updated 03/13/22 @ 10:[address] Clarence Erwin MD) Congestive heart failure (CHF) Essential hypertension HFrEF (heart failure with reduced ejection fraction) (08/19/21) Non-ischemic cardiomyopathy Obstructive sleep apnea Secondary pulmonary arterial hypertension Home Medications carvedilol 6.25 mg tablet 6.25 mg PO BID #180 tabs 03/13/22 [Rx Last Taken Unknown] empagliflozin 10 mg tablet (Jardiance) 10 mg PO DAILY #90 tabs 03/13/22 [Rx Last Taken Unknown] furosemide 40 mg tablet 40 mg PO DAILY #90 tabs 03/13/22 [Rx Last Taken Unknown] lisinopril 10 mg tablet 10 mg PO DAILY #90 tabs 03/13/22 [Rx Last Taken Unknown] spironolactone 25 mg tablet 25 mg PO DAILY #90 tabs 03/13/22 [Rx Last Taken Unknown] Allergy/AdvReac Type Severity Reaction Status Date / Time No Known Allergies Allergy Verified 03/13/22 08:01 Family History Other Heart disease Surgical History (Updated 08/21/21 @ 11:24 by Altagracia Perry) History of incision and drainage History of left heart catheterization (08/21/21) Social History Smoking Status: Current some day smoker tobacco type: smokeless tobacco ROS ROS ED Constitutional Constitutional ED: Denies chills or fever(s) Eyes Eyes: Denies change in vision or diplopia ENT ENT ED: Denies rhinorrhea or sore throat Cardiovascular Cardiovascular: Reports edema, leg edema and orthopnea; Denies chest pain, palpitations, radiating jaw, neck or arm pain or syncope Respiratory/Chest Respiratory/Chest: Reports dyspnea, dyspnea on exertion and orthopnea; Denies cough Gastrointestinal Gastrointestinal: Denies abdominal pain, diarrhea, nausea or vomiting Genitourinary Genitourinary ED: Denies dysuria or hematuria Musculoskeletal Musculoskeletal: Denies back pain or neck pain Integumentary Denies abscess or rash Neurologic Neurologic: Denies headache(s), paresthesias or weakness Psychiatric Psychiatric: Denies anxiety or suicidal thoughts EXAM Physical Exam Const Vital Signs: 03/13/22 08:01 03/13/22 08:31 03/13/22 08:31 Temperature 96.2 F L Temperature Source Temporal Pulse Rate 109 H 106 H Respiratory Rate 26 H 20 H Respiratory Effort Short of Breath Respiratory Pattern Tachypnea Blood Pressure 157/127 H Blood Pressure Mean 137 Pulse Ox 100 99 Oxygen Delivery Method Room Air Room Air 03/13/22 10:37 Temperature Temperature Source Pulse Rate 106 H Respiratory Rate 18 Respiratory Effort Respiratory Pattern Blood Pressure 142/106 H Blood Pressure Mean 118 Pulse Ox 96 Oxygen Delivery Method Room Air Positive well nourished, well developed and obese General Appearance ED: well developed and NAD Nutritional Appearance: obese HEENT Reports moist mucous membranes normocephalic and atraumatic Eyes PERRL and EOMs intact bilaterally Neck full ROM and supple Neck Narrative: + JVD Resp normal respiratory effort and clear to auscultation bilaterally Resp Narrative: Just diminished at the bases bilaterally Effort and Inspection: able to speak in complete sentences Cardio regular rate, regular rhythm and no murmurs GI non-tender and non-distended Auscultation: normoactive bowel sounds Palpation: soft Back/Spine no CVA tenderness General Back: other FROM Extremity normal to inspection General Extremety ED: Yes edema; Negative for pulses abnormal or tenderness General Extremity: edema bilateral lower extremity Details: severe; Negative for pulses abnormal Neuro oriented x3, CN's II-XII intact bilaterally and no sensory deficits noted Sensorium / Orientation: awake and alert Motor Exam: strength 5/5 throughout Psych mental status grossly normal Skin no rashes or lesions noted and no wounds MDM MDM MDM Narrative Medical decision making narrative: 2 view chest x-ray obtained, shows no evidence of pulmonary edema on my interpretation. Radiology in agreement, adding that he has cardiomegaly. EKG shows no acute ischemic abnormalities. His BNP is elevated consistent with his symptoms and history, the rest of his work-up is unremarkable. While waiting for this he was given Lasix 40 mg IV, he urinated about 2 or 3 L and felt better. He is not hypoxic, he is breathing well without ischemic chest symptoms and stable for discharge home. I went over his medications with him, and we will prescribe them to him short-term until he can follow-up. He is in agreement with that. I did review an outside note, discharge summary from his hospitalization here in August of this past year, he did have a cardiac cath showing nonobstructive coronary disease and an echocardiogram showing ejection fraction of 40%. He was to follow with Dr. Garcia to whom he is referred today. Putting him back on all of his old medications. Lab Data Attestation: I reviewed the patient's lab results. Labs: Laboratory Results - last 24 hr 03/13/22 03/13/22 03/13/22 08:26 08:26 08:26 WBC 5.7 RBC 4.46 L Hgb 12.3 L Hct 38.9 L MCV 87.2 MCH 27.6 MCHC 31.6 L RDW Std Deviation 48.2 H RDW Coeff of Henny 15.2 H Plt Count 231 MPV 8.6 Immature Gran % (Auto) 0.400 Neut % (Auto) 69.2 Lymph % (Auto) 15.5 L [place] % (Auto) 11.0 H Eos % (Auto) 3.4 Baso % (Auto) 0.5 Absolute Neuts (auto) 3.9 Absolute Lymphs (auto) 0.88 Nucleated RBC % 0 Sodium 140 Potassium 4.0 Chloride 111 H Carbon Dioxide 25.0 Anion Gap 4 L BUN 15 Creatinine 0.84 Estim Creat Clear Calc 104.58 Est GFR (MDRD) Af Amer 122 Est GFR (MDRD) Non-Af 101 BUN/Creatinine Ratio 17.9 Glucose 108 H Calcium 8.3 L B-Natriuretic Peptide 596.9 H Radiography Diagnostic Testing: Clinical Impression(s) from Imaging Studies Chest X-Ray 03/13/22 08:40 IMPRESSION: Cardiomegaly. The lungs are clear. Electronically Signed: Larry Mendiola MD at 8:59 EST , Rhythm Strip Rhythm Strip: Sinus Tach Rate: 105 Ectopy: None EKG Initial EKG: Attestation: I personally reviewed and interpreted this EKG as follows: Interpretation: No Acute Injury Pattern and Sinus Tachycardia Prior EKG tracings: available for review Prior: Unchanged Discharge Plan Triage Chief Complaint: Shortness of Breath ED Provider: Clarence Erwin Dx/Rx/DC Orders Clinical Impression: Acute exacerbation of CHF (congestive heart failure), Non-ischemic cardiomyopathy, Noncompliance with medications Prescriptions: Continued furosemide 40 mg Tablet 40 mg PO DAILY Qty: 90 0RF carvedilol 6.25 mg Tablet 6.25 mg PO BID Qty: 180 0RF spironolactone 25 mg Tablet 25 mg PO DAILY Qty: 90 0RF lisinopril 10 mg Tablet 10 mg PO DAILY Qty: 90 0RF Jardiance 10 mg Tablet 10 mg PO DAILY Qty: 90 0RF Primary Care Provider: Care Physician,No Primary Referrals: Richardson Garcia MD [Med Staff - Active Staff] - As soon as possible (call for appt) Care Physician,No Primary [Primary Care Provider] - Disposition Disposition: Home, Self Care
[2022-03-13 08:31] VITALS: PULSE 106; RESP 20; O2SAT 99
[2022-03-13 08:32] LABS: Absolute Lymphocyte Count 0.88 X10^3/uL (0.83-4.51); Absolute Neutrophil Count 3.9 X10^3/uL (2.0-7.7); Basophil# 0.03 X10^3/uL; Basophil% 0.5 % (0-1); Eosinophil# 0.19 X10^3/uL; Eosinophils% 3.4 % (0-5); Hematocrit 38.9 % (40-54); Hemoglobin 12.3 g/dL (13.0-16.5); Lymphocyte # 0.88 X10^3/ul (0.83-4.51); Lymphocyte % 15.5 % (19-41); Mean Corp Hgb Conc 31.6 g/dL (32-36); Mean Corpuscular Hgb 27.6 pg (27.0-32.0); Mean Corpuscular Volume 87.2 fL (80-94); Mean Platelet Vol. 8.6 fl (6.2-12.0); Monocyte# 0.62 X10^3/uL; NRBC Flagged by Analyzer 0 % (0-5); Neutrophil # 3.92 X10^3/uL (2.7-7.7); Neutrophil % 69.2 % (47-70); Platelet Count 231 K/mm3 (150-450); RBC Distribution Width CV 15.2 % (11.6-14.6); RBC Distribution Width SD 48.2 fl (35.1-43.9); Red Blood Count 4.46 M/mm3 (4.6-6.2); White Blood Count 5.7 K/mm3 (4.4-11.0)
--- NOTE | 2022-03-13 08:40 | RAD_ITS ---
STUDY: X-RAY CHEST REASON FOR EXAM: Male, 56 years old. sob TECHNIQUE: PA and lateral views of the chest. COMPARISON: Comparison is made with prior study dated 08/19/2021. FINDINGS: EKG electrodes are seen. The lungs are clear and expanded. There is no demonstrated pleural abnormality. There is moderate cardiac enlargement. Normal mediastinum and ana. Normal visualized pulmonary arteries. There is atherosclerotic tortuosity of the aortic arch and descending thoracic aorta. Normal visualized thoracic spine. Normal visualized ribs, clavicles, and shoulders. There is no demonstrated abnormality of the visualized soft tissue structures of the upper abdomen. RAD/Chest PA and Lateral IMPRESSION: Cardiomegaly. The lungs are clear. Electronically Signed: Larry Mendiola MD at 8:59 EST ,
[2022-03-13 08:45] LABS: Anion Gap 4 (5-15); BUN 15 mg/dL (7-18); BUN/Creat Ratio 17.9 RATIO (10-20); Calcium,Total 8.3 mg/dL (8.5-10.1); Chloride 111 mmol/L (98-107); Creatinine, Serum 0.84 mg/dL (0.70-1.30); EST Glomerular Filtration Rate 101 mL/min (>60); Est Glom Filt Rate - Afr Amer 122 mL/min (>60); Estimated Creatinine Clearance 104.58 ml/min; Glucose 108 mg/dL (74-106); Sodium Level 140 mmol/L (136-145)
[2022-03-13 08:57] LABS: BNP,B-Type NATRIURETIC PEPTIDE 596.9 pg/mL (0-100)
[2022-03-13] MEDS: Furosemide 40 MG/4 ML Vial IV (09:04)
[2022-03-13 10:37] VITALS: BP 142/106; PULSE 106; RESP 18; O2SAT 96
--- NOTE | 2022-03-13 10:45 | ED.RN ---
PATIENT URINATED 3,000 ML OF CLEAR YELLOW URINE. DR ATKINS NOTIFIED.
== END 2022-03-13 11:21 | disposition home or self-care (01) ==
PROVIDERS: Emergency Provider Emergency Medicine; Visit Provider Emergency Medicine
DX: I50.20 Unspecified systolic (congestive) heart failure (principal); I11.0 Hypertensive heart disease with heart failure; Z91.14 Patient's other noncompliance with medication regimen; F17.220 Nicotine dependence, chewing tobacco, uncomplicated; R06.02 Shortness of breath; I25.10 Atherosclerotic heart disease of native coronary artery without angina pectoris; E66.9 Obesity, unspecified; Z79.899 Other long term (current) drug therapy
CPT/HCPCS: 71046; 80048; 83880; 85025; 93005; 96374; 99284; A4216; J1940